=== PATIENT | female | born 1995 | race Asian ===

== ENCOUNTER → 2017-06-29 | Outpatient (CLI) | payer OTHER ==
[~2017-06-29] MED LIST: OPTIRAY 320 IV PRN
--- NOTE | 2017-06-29 15:31 | DIAGNOSTIC IMAGING REPORT ---
CHEST AND ABDOMINAL CT WITH CONTRAST CT DOSE: 367.69 mGy.cm HISTORY: Abnormal chest x-ray. Follow-up. TECHNIQUE: Multiaxial CT images of the chest and abdomen were performed following the intravenous and oral administration of contrast. A dose lowering technique was utilized adhering to the principles of ALARA. COMPARISON: None. FINDINGS: The central airways are patent. No pleural effusions. No pneumothorax. The lungs are essentially clear. No suspicious lytic or blastic osseous lesions. No mediastinal, hilar, or axillary lymphadenopathy. Normal caliber thoracic aorta. The central pulmonary arteries are patent. The heart is normal in size. Within the left paraspinal location extending from the T8 through the L2 level there is a large heterogeneous mass containing fat, fluid, soft tissue, and bony/calcified components. This measures approximately 17 x 10 x 10 cm. This paraspinal/retroperitoneal mass is both supra and infra diaphragmatic and location. This displaces and results in mass effect along the upper pole the left kidney. This also partially encases the proximal abdominal aorta at the level of the celiac artery. Mild smooth focal indentations at the left side of the T10-T12 vertebral bodies consistent with a long-standing pressure erosion. There is no cortical destruction or invasion at this time. There are 2 small left paraspinal soft tissue nodules measuring 7 mm at the T9 and T10 levels. These could represent small lymph nodes. These are best seen on images 160 and 184. This mass also results in mild anterior displacement of the spleen and mild mass effect along the inferior aspect of the heart. The liver, gallbladder, pancreas, spleen, and kidneys enhance normally. Normal right adrenal gland. A normal left adrenal gland is not identified. Therefore, this mass could be a primary adrenal lesion. Therefore, this favors a large adrenal myelolipoma. A retroperitoneal teratoma could also have a similar appearance. No bowel wall thickening or obstruction. The visualized appendix is normal. No retroperitoneal lymphadenopathy. IMPRESSION: 1. A 17 x 10 x 10 cm left retroperitoneal/paraspinal mass as described above which extends from the T8-L2 levels. This contains soft tissue, fluid, fat, and calcification/ossification. This partially encases the proximal abdominal aorta results in mass effect along the left kidney, spleen, and posterior heart. Mild smooth indentations within the left T10-T12 vertebral bodies consistent with long-standing pressure erosions. No cortical structures or invasion within the vertebral bodies. A normal left adrenal gland is not identified. Therefore, this favors an adrenal myelolipoma. However, a retroperitoneal teratoma could also have a similar appearance. Surgical consultation is recommended. 2. There are 2 subcentimeter left paraspinal soft tissue nodules adjacent to this lesion at the T9 and T10 levels. These could represent prominent lymph nodes. These bear watching on future examinations. Electronically signed by: Chriss Simpson M.D. 06/29/2017 3:29 PM Dictated Date/Time: 06/29/2017 3:05 PM
== END | disposition home or self-care (01) ==
LOC: C.CTS 14:25
PROVIDERS: ATTEND Physician Assistant
DX: R91.8 Other nonspecific abnormal finding of lung field (principal)